=== PATIENT | female | born 1940 | race Caucasian/White ===

== ENCOUNTER → 2016-11-07 | Outpatient (CLI) | payer OTHER | LOC: RAD 03:08 | DX: Z12.31 Encounter for screening mammogram for malignant neoplasm of breast (principal) ==

== ENCOUNTER → 2018-11-23 | Outpatient (CLI) | payer OTHER ==
[~2018-11-23] MED LIST: ADULT LOW DOSE81 MG PO; ALDACTONE25 MG PO; ALDACTONE50 MG PO; ATENOLOL 50 MG50 M1 PO; CARVEDILOL25 MG PO; CLONIDINE0.1 PO; ENALAPRIL MALEAT5 M1 PO; FLAGYL500 MG PO; LISINOPRIL20 MG PO; MAGNESIUM OXID400 MG PO; MAXZIDE-25 MG1 EACH PO; MIRALAX17 GM PO; NORVASC10 MG PO; PRAVASTATIN SOD20 MG PO; PRINIVIL40 MG PO; SPIRONOLACTONE50 MG PO; STOOL SOFTENER100 M1 PO; STOOL SOFTENER50 MG PO; SYNTHROID75 MCG PO; TRIAMCINOLONE A80 G2 TOP; TRIAMTERENE-HC1 EAC1 PO; TRIAMTERENE-HC1 EAC2 PO; TYLENOL325 MG PO; VANCOMYCIN100 MG/M1 PO; VANCOMYCIN100 MG/ML PO; VITAMIN D1000 UNI1 PO; ZANTAC 150MG T150 MG PO
== END ==
LOC: RAD 01:13
DX: Z12.31 Encounter for screening mammogram for malignant neoplasm of breast (principal)

== ENCOUNTER → 2019-11-26 | Outpatient (CLI) | payer OTHER | LOC: RAD 10:08 | PROVIDERS: ATTEND Internal Medicine | DX: Z12.31 Encounter for screening mammogram for malignant neoplasm of breast (principal); N64.89 Other specified disorders of breast ==

== ENCOUNTER → 2020-12-09 | Outpatient (CLI) | payer OTHER | LOC: BC 08:50 | PROVIDERS: ATTEND Internal Medicine | DX: Z12.31 Encounter for screening mammogram for malignant neoplasm of breast (principal); N64.89 Other specified disorders of breast ==